=== PATIENT | female | born 1945 | race Caucasian/White ===

== ENCOUNTER 2017-06-22 20:40 | Emergency (ER) | payer MEDICARE, OTHER ==
[~2017-06-22] VITALS: Ht 170.2 cm; Wt 65.8 kg
[~2017-06-22 20:40] MED LIST: AMBIEN; LISIPOW; PRISTIQUE
[2017-06-22] MEDS ORDERED: HYDROmorphone HCL 2 MG/ML VL IV ONE (22:15)
[2017-06-22] MEDS ORDERED: SODIUM CHLORIDE 0.9% 1,000 ML IV ONE (22:15)
[2017-06-22] MEDS ORDERED: ONDANSETRON HCL 4 MG/2 ML VIAL IV ONE ×2 (22:15)
[2017-06-23] MEDS ORDERED: ONDANSETRON HCL 4 MG/2 ML VIAL IV ONE (03:00)
[2017-06-23 05:47] LABS: Basophils # (auto) 0 uL; Basophils % (auto) 0.3 % (0.0-2.0); Eosinophils # (auto) 0.1 uL; Eosinophils % (auto) 0.9 % (0.0-7.0); Hematocrit 43.3 % (36.0-46.0); Hemoglobin 14.6 g/dL (12.2-16.2); Lymphocytes # (auto) 1.1 uL; Lymphocytes % (auto) 16.2 % (10.0-50.0); Mean Corpuscular Hemoglobin 30.6 pg (28.0-32.0); Mean Corpuscular Hgb Conc. 33.8 g/dL (32.0-36.0); Mean Corpuscular Volume 90.4 fL (80.0-100.0); Mean Platelet Volume 7.5 fL (6.9-10.8); Monocytes # (auto) 0.5 uL; Neutrophils % (auto) 74.6 % (37.0-80.0); Nucleated Red Blood Cells % 0.1 %; Platelet Count (auto) 200 10^3/uL (140-450); Red Cell Distribution Width 12.8 % (11.8-14.3); White Blood Cell 6.6 10^3/uL (4.4-10.8)
[2017-06-23 05:51] VITALS: BP 163/99
[2017-06-23 06:02] LABS: Albumin 3.4 g/dL (3.4-5.0); BUN/Creatinine Ratio 19.4; Bilirubin, Total 0.7 mg/dL (0.2-1.0); Calcium 8.9 mg/dL (8.5-10.1); Potassium 3.4 mmol/L (3.5-5.1); Total Protein 7.2 g/dL (6.4-8.2)
== END 2017-06-23 07:15 | disposition home or self-care (01) ==
LOC: EDBD 20:40 → ER 20:42
DX: K29.00 Acute gastritis without bleeding (principal); I10 Essential (primary) hypertension; G89.29 Other chronic pain; M54.9 Dorsalgia, unspecified
CPT/HCPCS: 36415; 71010; 74176; 80053; 82150; 83690; 85025; 96361; 96374; 96375; 96376; 99285; J1170; J2405; J7030

== ENCOUNTER 2019-10-17 14:48 | Inpatient (IN) | payer OTHER ==
[~2019-10-17] VITALS: Ht 165.1 cm; Wt 71.2 kg
[2019-10-17] MEDS ORDERED: ASPirin 81 mg TAB PO ONE (15:30)
[2019-10-17 15:39] LABS: Basophils # (auto) 0 10 ^3/uL (0-0.2); Basophils % (auto) 0.5 % (0.0-2.0); Eosinophils # (auto) 0.3 10 ^3/uL (0-0.8); Hematocrit 40.8 % (36.0-46.0); Hemoglobin 14.1 g/dL (12.2-16.2); Lymphocytes # (auto) 0.7 10 ^3/uL (0.4-5.4); Lymphocytes % (auto) 14.1 % (10.0-50.0); Mean Corpuscular Hgb Conc. 34.5 g/dL (32.0-36.0); Mean Corpuscular Volume 86.8 fL (80.0-100.0); Monocytes # (auto) 0.4 10 ^3/uL (0-1.3); Monocytes % (auto) 7.4 % (0.0-12.0); Neutrophils # (auto) 3.8 10 ^3/uL (1.6-8.6); Platelet Count (auto) 264 10^3/uL (140-450); Red Cell Distribution Width 14.2 % (11.8-14.3); White Blood Cell 5.2 10^3/uL (4.4-10.8)
[2019-10-17 15:53] LABS: INR 1.07 (0.9-1.15); Partial Thromboplastin Time 31.3 sec (23.64-32.05)
[2019-10-17 16:00] LABS: Albumin 2.8 g/dL (3.4-5.0); Calcium 9.2 mg/dL (8.5-10.1); Potassium 3.9 mmol/L (3.5-5.1)
[2019-10-17 16:05] LABS: Bilirubin, Total 0.5 mg/dL (0.2-1.0); Total Protein 7.6 g/dL (6.4-8.2)
[2019-10-17] MEDS ORDERED: IOHEXOL 350 MG/ML 100ML IJ ONE (17:50)
[2019-10-17] MEDS ORDERED: cefTRIAXone 1GM/50ML D5W 50 ML IV ONE (18:45)
[2019-10-17] MEDS ORDERED: ONDANSETRON HCL 4 MG/2 ML VIAL IV ONE (20:30)
[2019-10-17] MEDS ORDERED: MORPHINE SULF INJ 2 MG/ML SYRINGE 1ML IV ONE (20:30)
[2019-10-17] MEDS ORDERED: NITROGLYCERIN 0.4 MG SL TAB SL PRN (21:00)
[2019-10-17] MEDS ORDERED: ALBUTEROL SULF 2.5 MG/0.5ML(0.5%) NEB SOLN NEB PRN (21:00)
[2019-10-17] MEDS ORDERED: ACETAMINOPHEN 325 MG TAB PO PRN (21:00)
[2019-10-17] MEDS ORDERED: DOCUSATE SOD 100 MG CAP PO PRN (21:00)
[2019-10-17] MEDS ORDERED: MORPHINE SULF INJ 2 MG/ML SYRINGE 1ML IV PRN (21:00)
[2019-10-17] MEDS ORDERED: ONDANSETRON HCL 4 MG/2 ML VIAL IV PRN (21:00)
[2019-10-17] MEDS ORDERED: IPRATROPIUM BROM 0.5 MG/2.5ML INH SOL NEB PRN (21:00)
[2019-10-17] MEDS ORDERED: MORPHINE SULFATE 4 MG/ML SYR/VIAL IV PRN (21:00)
[2019-10-17 22:14] VITALS: BP 142/92
--- NOTE | 2019-10-17 22:42 | NUR ---
Respiratory note: ASSESSMENT FOR PRN MED NEB TX. HR 84, SPO2 94% ON 2L NC, RR 18, BS CLEAR/DIMINISHED. PT PRESENTING NO RESPIRATORY DISTRESS, MED NEB TX NOT INDICATED AT THIS TIME. PT MADE AWARE OF PRN MED NEB TXS AND TO HAVE RT PAGED IF NEEDED. WILL CONTINUE TO MONITOR.
[2019-10-18] MEDS ORDERED: TEMAZEPAM 15 MG CAP PO ONE (00:15)
[2019-10-18] MEDS: traZODone HCL 50 MG TAB PO SCH ×2 (03:15→21:43)
[2019-10-18 05:39] LABS: Basophils # (auto) 0 10 ^3/uL (0-0.2); Basophils % (auto) 0.5 % (0.0-2.0); Eosinophils # (auto) 0.3 10 ^3/uL (0-0.8); Eosinophils % (auto) 6.3 % (0.0-7.0); Hematocrit 37.4 % (36.0-46.0); Hemoglobin 12.4 g/dL (12.2-16.2); Lymphocytes # (auto) 1.4 10 ^3/uL (0.4-5.4); Lymphocytes % (auto) 25.4 % (10.0-50.0); Mean Corpuscular Hemoglobin 28.8 pg (28.0-32.0); Mean Corpuscular Hgb Conc. 33.3 g/dL (32.0-36.0); Mean Corpuscular Volume 86.5 fL (80.0-100.0); Monocytes # (auto) 0.5 10 ^3/uL (0-1.3); Monocytes % (auto) 9.3 % (0.0-12.0); Neutrophils # (auto) 3.1 10 ^3/uL (1.6-8.6); Neutrophils % (auto) 58.5 % (37.0-80.0); Nucleated Red Blood Cells % 0.1 %; Platelet Count (auto) 233 10^3/uL (140-450); Red Blood Cells 4.32 10^6/uL (4.0-5.20); Red Cell Distribution Width 14.4 % (11.8-14.3); White Blood Cell 5.4 10^3/uL (4.4-10.8)
[2019-10-18 05:58] LABS: Potassium 3.5 mmol/L (3.5-5.1)
[2019-10-18 06:14] LABS: BUN/Creatinine Ratio 16.7; Calcium 8.9 mg/dL (8.5-10.1)
[2019-10-18] MEDS ORDERED: cefTRIAXone 1GM/50ML D5W 50 ML IV SCH (10:00)
[2019-10-18] MEDS ORDERED: FUROSEMIDE 20 MG TAB PO SCH (10:00)
[2019-10-18] MEDS: ASPirin 81 mg TAB PO SCH (10:06)
[2019-10-18] MEDS: ATORVASTATIN 20 MG TAB PO SCH (10:06)
[2019-10-18] MEDS: LISINOPRIL 20 MG TAB PO SCH (10:07)
[2019-10-18] MEDS: CLOPIDOGREL BISULFATE 75 MG TAB PO SCH (10:07)
[2019-10-18] MEDS ORDERED: ENOXAPARIN SOD 100 MG/1 ML SYRINGE SC ONE (14:00)
[2019-10-18] MEDS ORDERED: MORPHINE SULF INJ 2 MG/ML SYRINGE 1ML IV PRN (14:15)
[2019-10-18] MEDS ORDERED: ENOXAPARIN SOD 80 MG/0.8ML SYRINGE SC ONE (14:15)
[2019-10-18] MEDS: levoFLOXacin 500MG 100 ML IV SCH (17:47)
--- NOTE | 2019-10-18 19:36 | NUR ---
PT ASSESSED FOR PRN MED NEB TX. SPO2 96% ON 3L NC, HR 85, RR 18. PT RESTING COMFORTABLY AT THIS TIME. NO TX INDICATED. WILL CONTINUE TO MONITOR PT.
[2019-10-18] MEDS: METOPROLOL TARTRATE 25 MG TAB PO SCH (21:43)
[2019-10-18] MEDS: ENOXAPARIN SOD 80 MG/0.8ML SYRINGE SC SCH (21:44)
[2019-10-18] MEDS ORDERED: ATORVASTATIN 20 MG TAB PO SCH (22:00)
[2019-10-19 04:05] VITALS: BP 137/97
--- NOTE | 2019-10-19 04:05 | NUR ---
Admit to [facility] admitted to [facility] via gurney on cardiac nurse, and portable 02. Patient transferred to bed, connected to unit monitoring and oxygen, and weighed by bedscale. Patient oriented to Rachel Akhtar, primary RN, unit, room, bed, and unit policies regarding patient care and visiting hours. All questions and concerns addressed, patient verbalized understanding. Pt states daughter will bring medicines from home. Pt also states can not sleep without Lunesta medication. Pt educated that the med needs to come from home and can be distributed by our pharmacy until she is ready to go home. Pt has belongings at the bedside and states daughter will take medication bottles home. No S/S of distress or pain at this time. States chest pain has been gone since she was in the emergency dept.
[2019-10-19 05:02] VITALS: BP 137/97
[2019-10-19 06:56] LABS: Basophils # (auto) 0 10 ^3/uL (0-0.2); Basophils % (auto) 0.5 % (0.0-2.0); Eosinophils # (auto) 0.4 10 ^3/uL (0-0.8); Eosinophils % (auto) 8.4 % (0.0-7.0); Hematocrit 38.2 % (36.0-46.0); Hemoglobin 12.7 g/dL (12.2-16.2); Lymphocytes # (auto) 1.7 10 ^3/uL (0.4-5.4); Lymphocytes % (auto) 34.6 % (10.0-50.0); Mean Corpuscular Hemoglobin 28.8 pg (28.0-32.0); Mean Corpuscular Hgb Conc. 33.4 g/dL (32.0-36.0); Mean Corpuscular Volume 86.3 fL (80.0-100.0); Monocytes # (auto) 0.5 10 ^3/uL (0-1.3); Monocytes % (auto) 10.1 % (0.0-12.0); Neutrophils # (auto) 2.3 10 ^3/uL (1.6-8.6); Neutrophils % (auto) 46.4 % (37.0-80.0); Nucleated Red Blood Cells % 0.1 %; Platelet Count (auto) 253 10^3/uL (140-450); Red Blood Cells 4.43 10^6/uL (4.0-5.20); Red Cell Distribution Width 14.3 % (11.8-14.3)
[2019-10-19 07:07] LABS: Calcium 9.4 mg/dL (8.5-10.1); Potassium 3.4 mmol/L (3.5-5.1)
--- NOTE | 2019-10-19 07:30 | NUR ---
RECEIVED PATIENT SITTING UP IN THE BED, A/O TIME 4, O2 AT 2L BY THE N/C, STATES SHE IS TIRED DIDN'T GET MUCH SLEEP LAST NIGHT, SALINE LOCK 20G TO THE RAC FLUSHED AND PATENT, STATES SHE CAN GET UP AND GO TO THE BR, DENIES PAIN
[2019-10-19 07:40] VITALS: BP 127/78
--- NOTE | 2019-10-19 07:50 | NUR ---
PATIENT GOT UP TO THE BR NO HELP NEEDED
--- NOTE | 2019-10-19 07:58 | NUR ---
Pt remains stable. No Changes since arrival to unit. Report given to AM shift, care endorsed.
--- NOTE | 2019-10-19 08:10 | NUR ---
Respiratory note: PRN ASSESSMENT. PT AWAKE, ALERT AND RESPONSIVE. PT ON 2 LPM SP02 96%, RR 18 AND BS ARE CLEAR. NO COMPLAINT OF SOB, NO TREATMENT INDICATED.
--- NOTE | 2019-10-19 08:20 | NUR ---
RECEIVED CALL FROM DR RENDON AND STATED TO KEEP THE PATIENT NPO AND TO GET A TROP DRAWN Addendum: 10/19/19 at 0953 by Jasmyn Washington RN PER DR RENDON STATED TO HOLD THE LOVENOX BUT GIVE ALL OF THE OTHER MEDS
--- NOTE | 2019-10-19 08:30 | NUR ---
EXPRESS TO THE PATIENT THAT SHE IS STILL NPO AND THAT I SPOKE WITH THE VIDEOTAPE SALES REPRESENTATIVE WHO STATED TO KEEP HER NPO
--- NOTE | 2019-10-19 09:30 | NUR ---
SITTING UP IN BED EYES CLOSED APPEARS TO BE SLEEPING
[2019-10-19] MEDS: ENOXAPARIN SOD 80 MG/0.8ML SYRINGE SC SCH (09:52)
[2019-10-19] MEDS: levoFLOXacin 500MG 100 ML IV SCH (09:59)
[2019-10-19] MEDS ORDERED: ASPirin 325 MG TAB PO SCH (10:00)
[2019-10-19] MEDS: ASPirin 81 mg TAB PO SCH (10:04)
[2019-10-19] MEDS: METOPROLOL TARTRATE 25 MG TAB PO SCH ×2 (10:05→22:32)
[2019-10-19] MEDS: CLOPIDOGREL BISULFATE 75 MG TAB PO SCH (10:05)
[2019-10-19] MEDS: ATORVASTATIN 20 MG TAB PO SCH (10:05)
--- NOTE | 2019-10-19 10:10 | NUR ---
DISCUSSED MEDICATIONS WITH THE PATIENT REGARDING THE DOSAGE, USAGE AND THE SIDE EFFECTS, VERBALIZED UNDERSTANDING AND MEDS GIVEN ORDERED ALSO GAVE NORCO FOR PAIN TO THE LEGS 03/14
[2019-10-19] MEDS: HYDROcodone-ACET 5/325MG TAB PO PRN ×3 (10:11→22:32)
--- NOTE | 2019-10-19 11:04 | NUR ---
RECEIVED A CALL FROM DR RAJPUT AND STATED "TO SPEAK WITH THE RADIOLOGIST ABOUT DOING A LUNG BIOPSY , SPOKE WITH DR PAVON RADIOLOGIST AND STATED "TO PLACE THE ORDER FOR THE LUNG BIOPSY" WHICH WAS DONE
--- NOTE | 2019-10-19 11:05 | NUR ---
DR RENDON IN TALKING TO THE PATIENT ABOUT HAVING POSSIBLE HEART CATH BUT WANTS A ECHO FIRST
--- NOTE | 2019-10-19 11:13 | NUR ---
DR KEATING IN TALKING TO THE PATIENT AND STATED SHE CAN HAVE THE LUNG BIOPSY AN OUT PATIENT IF NEEDED SINCE SHE IS HAVING SOME HEART ISSUES
--- NOTE | 2019-10-19 11:16 | NUR ---
CALLED PORTIA THE OUTSIDE SALESPERSON AND ASK IF HE COULD COME AND DO THE ECHO
--- NOTE | 2019-10-19 11:22 | NUR ---
ECHO BEING DONE
--- NOTE | 2019-10-19 11:23 | NUR ---
FAMILY IN TO VISIT WITH THE PILO
--- NOTE | 2019-10-19 11:37 | NUR ---
D/C Planning Per consult for home health safety evaluation. Faxed order to [facility]. Per Rachel with [facility] patient has been accepted and service to start within 24-48hrs upon d/c day. Faxed order to [facility] requesting authorization for [facility].
[2019-10-19 11:40] VITALS: BP 135/87
--- NOTE | 2019-10-19 11:41 | NUR ---
Received a followed up called from Yulissa with [facility] advising me authorization has been faxed to [facility].
--- NOTE | 2019-10-19 12:00 | NUR ---
TOLERATED THE ECHO BEING DONE, NO COMPLAINT OF PAIN AT THIS TIME
[2019-10-19] MEDS: LISINOPRIL 20 MG TAB PO SCH (12:07)
--- NOTE | 2019-10-19 12:26 | NUR ---
SITTING UP IN THE BED TALKING WITH HER FAMILY
--- NOTE | 2019-10-19 12:28 | NUR ---
NO CALL FROM DR RENDON IF HE IS GOING TO DO A HEART CATH OR NOT
--- NOTE | 2019-10-19 12:40 | NUR ---
RECEIVED CALL FROM DR HOWARD AND STATED HE SCHEDULED THE PATIENT FOR A HEART CATH TOMORROW AT 1200
--- NOTE | 2019-10-19 12:50 | NUR ---
EXPRESS TO THE PATIENT THAT THE HEART CATH HAS BEEN SCHEDULED FOR TOMORROW AT ABOUT 1200
--- NOTE | 2019-10-19 13:50 | NUR ---
DR RAJPUT TO SEE THE PATIENT AND TALK TO HER ABOUT THE HEART CATH TOMORROW AND ABOUT THE POC, PATIENT SIGNED THE CONSENT FOR THE HEART CATH
[2019-10-19] MEDS ORDERED: LISI30TA4 PO (14:17)
[2019-10-19] MEDS ORDERED: PERCOT PO (14:17)
[2019-10-19] MEDS ORDERED: SIMV-8 PO (14:17)
[2019-10-19] MEDS ORDERED: TIOTCAP IN (14:17)
[2019-10-19] MEDS ORDERED: TRAZ100T3 PO (14:17)
[2019-10-19] MEDS ORDERED: CAR3125T PO (14:17)
[2019-10-19] MEDS ORDERED: FLUT250M2 INH (14:17)
--- NOTE | 2019-10-19 15:14 | NUR ---
MEDICATED FOR PAIN TO THE BACK AND LEGS WITH NORCO 6/10
[2019-10-19 15:40] VITALS: BP 143/91
--- NOTE | 2019-10-19 16:02 | NUR ---
assessment Patient is a 74 year old female who is alert and oriented. Patients cognitive abilities are intact. Prior to admission patient lived home alone and functioned independently. Patient informed me she is able to care for her own ADLs. Per patient she will return home to her prior living arrangements post discharge and family will transport her home. Patient informed me her PCP is Dr Mallory. Patient may benefit from home health safety and vitals on discharge. I informed patient she has a right to speak to a rn social work regarding all care. I informed patient she has a right to participate in any and all discharge planning. Patient does not have a POA and advanced directive. I have offered patient information on POA and advanced directives. I informed the patient the advantages and benefits of having an Advanced Directive. Patient verbalized understanding and agreed to discharge plan. Addendum: 10/19/19 at 1606 by Korina MICHAEL Amended: Links added.
--- NOTE | 2019-10-19 16:18 | NUR ---
DAUGHTER IN TO SEE THE PATIENT AND STATES SHE IS TAKING HOME HER HOME MEDS HER YELLOW BRACELET AND HER GREEN PURSE
--- NOTE | 2019-10-19 17:20 | NUR ---
DR NDIAYE, IN TO SEE THE PATIENT AND SPOKE WITH HER ABOUT HER LUNG NODULES
[2019-10-19] MEDS ORDERED: ESZO3TAB53 PO (17:56)
--- NOTE | 2019-10-19 18:23 | NUR ---
DINNER AT THE BEDSIDE, PATIENT A/O TIMES 4, TALKING ON THE PHONE, O2 AT 2L BY N/C, WALKS TO THE BR NO HELP NEEDED, SALINE LOCK TO THE RFA 20G FLUSHED AND PATENT, NO COMPLAINTS OF PAIN OR SOB, WILL CONTINUE TO MONITOR AND GIVE REPORT TO THE NEXT SHIFT
[2019-10-19 20:00] VITALS: BP 138/97
--- NOTE | 2019-10-19 20:00 | NUR ---
SHIFT OPENING NOTE RECEIVED PATIENT AWAKE, ALERT AND ORIENTED X4. NO SOB, DISTRESS OR PAIN NOTED. ON 2L N/C. PHYSICAL ASSESSMENT COMPLETED, SEE INTERVENTIONS. INSTRUCTED ON POC AND TO CALL FOR ASSIST NEEDED. BED IS IN THE LOWEST POSITION WITH SIDE RAILS UP X2, CALL LIGHT IS WITHIN REACH.
[2019-10-19] MEDS ORDERED: POTASSIUM EFFERVESENT TAB 25 MEQ PO ONE (21:00)
--- NOTE | 2019-10-19 21:30 | NUR ---
UP TO BATHROOM INDEPENDENTLY SAFELY BACK INTO BED. TOLERATED IT WELL.
--- NOTE | 2019-10-19 21:30 | NUR ---
Respiratory note: PT ASSESSED FOR PRN MED NEB TX. HR 96, RR 16, SPO2 94% ON 2L NC. NO SIGNS OF ANY RESPIRATORY DISTRESS NOTED. ADVISED PT TO CALL IF TX IS NEEDED. RT NAME AND PAGER NUMBER WRITTEN ON PT'S BOARD.
[2019-10-19] MEDS: traZODone HCL 50 MG TAB PO SCH (22:31)
[2019-10-20] VITALS: BP 154/98
[2019-10-20 04:00] VITALS: BP 148/88
--- NOTE | 2019-10-20 04:35 | NUR ---
IV insertion IV access obtained, via clean sterile technique by inserting [20] gauge catheter at [RIGHT FOREARM]. IV secured properly. No trauma to site. Patient tolerated well. NOTE: 2ND IV LINE
--- NOTE | 2019-10-20 05:10 | NUR ---
MORNING HYGIENE CARE CHG WIPE BATH PROVIDED TO PATIENT. FULL LINEN CHANGED. GOWN CHANGED. PATIENT TOLERATED IT WELL.
[2019-10-20 05:47] LABS: Basophils # (auto) 0 10 ^3/uL (0-0.2); Basophils % (auto) 0.5 % (0.0-2.0); Eosinophils # (auto) 0.4 10 ^3/uL (0-0.8); Eosinophils % (auto) 6.7 % (0.0-7.0); Hematocrit 42.8 % (36.0-46.0); Hemoglobin 14.3 g/dL (12.2-16.2); Lymphocytes # (auto) 1.7 10 ^3/uL (0.4-5.4); Lymphocytes % (auto) 28.3 % (10.0-50.0); Mean Corpuscular Hemoglobin 29.1 pg (28.0-32.0); Mean Corpuscular Hgb Conc. 33.4 g/dL (32.0-36.0); Mean Corpuscular Volume 87.3 fL (80.0-100.0); Monocytes # (auto) 0.7 10 ^3/uL (0-1.3); Monocytes % (auto) 10.8 % (0.0-12.0); Neutrophils # (auto) 3.3 10 ^3/uL (1.6-8.6); Neutrophils % (auto) 53.7 % (37.0-80.0); Nucleated Red Blood Cells % 0.1 %; Platelet Count (auto) 301 10^3/uL (140-450); Red Cell Distribution Width 14.4 % (11.8-14.3); White Blood Cell 6.1 10^3/uL (4.4-10.8)
[2019-10-20 06:02] LABS: Albumin 2.9 g/dL (3.4-5.0); Calcium 9.9 mg/dL (8.5-10.1); Magnesium 2.2 mg/dL (1.6-2.6); Potassium 4.3 mmol/L (3.5-5.1)
[2019-10-20 06:04] LABS: BUN/Creatinine Ratio 10.5; INR 1.11 (0.9-1.15); Partial Thromboplastin Time 30.3 sec (23.64-32.05)
[2019-10-20 06:07] LABS: Bilirubin, Total 0.5 mg/dL (0.2-1.0); Total Protein 7.9 g/dL (6.4-8.2)
--- NOTE | 2019-10-20 07:27 | NUR ---
REPORT GIVEN AND CARE ENDORSED TO JAZMINE PIERRE IN TELE
--- NOTE | 2019-10-20 07:40 | NUR ---
PATIENT TRANSPORTED TO ROOM 278B VIA BED. ALL BELONGINGS TAKEN WITH PATIENT.
--- NOTE | 2019-10-20 08:00 | NUR ---
TRANSFER RECEIVED PATIENT FROM [facility] AFTER REPORT CALLED. PATIENT ORIENTED TO PRIMARY RN JAZMINE AND UNIT POLICIES/VISITING HOURS. TELE #[id number] WITH A READING OF NORMAL SINUS RHYTHM UPON ARRIVAL TO UNIT. PATIENT IS AWAKE AND ALERT WITH NO S/S OF DISTRESS NOTED OR COMPLAINTS ON PAIN. PATIENT UPDATED ON POC FOR THE DAY AND ALL QUESTIONS ANSWERED. BED IS IN LOWEST, LOCKED POSITION WITH SIDE RAILS UP X2 AND CALL LIGHT WITHIN REACH. WILL CONTINUE TO MONITOR Q1H AND PRN.
--- NOTE | 2019-10-20 08:30 | NUR ---
LACEWORKER PATIENT TAKEN DOWN TO LACEWORKER WITHOUT INCIDENT.
[2019-10-20] MEDS ORDERED: LIDOCAINE 2%HCL (LOCAL ANESTH.) INJ 20ML MDV ONE (09:12)
[2019-10-20] MEDS ORDERED: IODIXANOL 320MG/ML 100ML BTL IV ONE ×2 (09:12→09:26)
[2019-10-20] MEDS ORDERED: ANGIOMAX 250 MG VIAL IV ONE (09:14)
[2019-10-20] MEDS ORDERED: VERAPAMIL 2.5MG/ML INJ 2ML VIAL IV ONE (09:14)
[2019-10-20] MEDS ORDERED: fentaNYL CITRATE 100 MCG/2 ML VL ONE (09:14)
[2019-10-20] MEDS ORDERED: HEPARIN SODIUM (PORCINE) 5000 UNITS/ML 1ML VIAL ONE (09:14)
[2019-10-20] MEDS ORDERED: SODIUM CHL 0.9% 0 ML ONE (09:15)
[2019-10-20] MEDS ORDERED: MIDAZOLAM HCL 1MG/1ML-2 ML VIAL ONE (09:15)
[2019-10-20] MEDS: CLOPIDOGREL BISULFATE 75 MG TAB PO SCH (10:00)
--- NOTE | 2019-10-20 10:04 | NUR ---
RT NOTE: PT IN MANAGER ELIGIBILITY FOR PROCEDURE. WILL ATTEMPT TO ASSESS FOR PRN BREATHING TX AFTER PT IS BACK ON UNIT.
--- NOTE | 2019-10-20 11:05 | NUR ---
BACK ON UNIT PATIENT BROUGHT BACK TO ROOM FROM CLAIM REP AFTER REPORT RECEIVED. LEFT HEART CATH ACCESS WAS THE LEFT WRIST WHICH HAS A VASCBAND IN PLACE. PER CLAIM REP RN SHE HAD TAKEN OUT 2ML OF AIR 5 MIN PREVIOUSLY AND SITE STARTED TO OOZE. SHE REINFLATED WITH 2ML OF AIR AND INSTRUCTED ME TO DEFLATE 2ML IN 30 MIN. VITAL SIGNS UPON RETURN TO UNIT ARE BP OF 122/66 AND HEART RATE OF 94. WILL CONTINUE TO MONITOR.
[2019-10-20] MEDS: ATORVASTATIN 20 MG TAB PO SCH (11:20)
[2019-10-20] MEDS: LISINOPRIL 20 MG TAB PO SCH (11:21)
[2019-10-20] MEDS: ASPirin 81 mg TAB PO SCH (11:21)
[2019-10-20] MEDS: METOPROLOL TARTRATE 25 MG TAB PO SCH (11:22)
[2019-10-20] MEDS: levoFLOXacin 500MG 100 ML IV SCH (11:25)
--- NOTE | 2019-10-20 12:15 | NUR ---
PAGED AFTER SPEAKING TO DR RAJPUT I PAGED DR RENDON FOR ORDERS. AWAITING CALL BACK
--- NOTE | 2019-10-20 12:27 | NUR ---
VASCBAND VASCBAND COMPLETELY DEFLATED AND REMOVED. CLEAR, OCCLUSIVE DRESSING APPLIED TO SITE. SITE REMAINS SOFT AND NONTENDER WITH MINIMAL BRUISING. WILL CONTINUE TO MONITOR.
[2019-10-20 13:00] VITALS: BP 132/80
[2019-10-20] MEDS ORDERED: NITR0.4S29 SL (14:42)
[2019-10-20] MEDS ORDERED: ATOR20TA50 PO (14:42)
[2019-10-20] MEDS ORDERED: ASPI-394 PO (14:42)
[2019-10-20] MEDS ORDERED: LEVO500T21 PO (14:42)
[2019-10-20 15:37] VITALS: BP 122/66
--- NOTE | 2019-10-20 15:50 | NUR ---
PAGED DR RENDON PAGED FOR DISCHARGE CLEARANCE. AWAITING CALL BACK.
--- NOTE | 2019-10-20 16:04 | NUR ---
I faxed home health order and out patient lung biopsy order to [facility].
--- NOTE | 2019-10-20 16:15 | NUR ---
I spoke with Yulissa at [facility] ([phone])-she said [facility] will follow the patient-and Yulissa is arranging the outpatient appointment for patient Saturday10/26/19 as well as appointment with Dr. Ayala-they will contact patient with updated information.
--- NOTE | 2019-10-20 17:15 | NUR ---
PAGED DR RAJPUT PAGED DUE TO INABILITY TO REACH DR RENDON. AWAITING CALL BACK.
--- NOTE | 2019-10-20 17:30 | NUR ---
3RD PAGE TO PAGED DR RENDON FOR THE THIRD TIME TRYING TO GET DISCHARGE CLEARANCE. AWAITING CALL BACK.
--- NOTE | 2019-10-20 17:45 | NUR ---
MD CALL BACK RECEIVED CALL FROM DR RENDON REGARDING DISCHARGE CLEARANCE. REVIEWED PATIENT'S MEDICATIONS AND CLEARANCE OBTAINED.
--- NOTE | 2019-10-20 17:53 | NUR ---
Discharge instructions given as ordered. Encourage to follow up with PMD as instructed. All questions and concerns addressed. Patient verbalized understanding. IV removed with catheter intact, pressure dressing applied. Telemetry unit returned to ICU. Patient taken to vehicle via wheelchair with all personal belongings, accompanied by staff and family member. No distress noted at time of departure.
[2019-12-31] MEDS ORDERED: PRED20TA2 PO (13:07)
[2019-12-31] MEDS ORDERED: DOX100T PO (13:07)
[2019-12-31] MEDS ORDERED: ALBUAER3 IN (13:07)
[2019-12-31] MEDS ORDERED: FURO1TAB31 PO (13:07)
[2020-01-06] MEDS ORDERED: DOX100T PO (19:02)
[2020-01-06] MEDS ORDERED: FURO1TAB31 PO (19:02)
[2020-01-06] MEDS ORDERED: PRED20TA2 PO (19:02)
[2020-01-06] MEDS ORDERED: ALBUAER3 IN (19:02)
== END 2019-10-20 17:50 | disposition home health service (06) | DRG 280 ==
LOC: EDBD 14:48 → EDUNIT# 14:48 → ER 14:48 → TELE 14:49 → DOU IN ICU 10-19 04:10 → TELE-WESTW 10-20 08:19
PROVIDERS: ADMIT Hospitalist; ATTEND Internal Medicine
PROC: B211YZZ Fluoroscopy of Multiple Coronary Arteries using Other Contrast (ICD-10-PCS; principal; 2019-10-20)
DX: I21.4 Non-ST elevation (NSTEMI) myocardial infarction (principal); J18.9 Pneumonia, unspecified organism; I50.41 Acute combined systolic (congestive) and diastolic (congestive) heart failure; R91.8 Other nonspecific abnormal finding of lung field; I25.10 Atherosclerotic heart disease of native coronary artery without angina pectoris; I11.0 Hypertensive heart disease with heart failure; E78.5 Hyperlipidemia, unspecified; F17.200 Nicotine dependence, unspecified, uncomplicated; F32.9 Major depressive disorder, single episode, unspecified; J43.9 Emphysema, unspecified; Z79.02 Long term (current) use of antithrombotics/antiplatelets; Z79.82 Long term (current) use of aspirin; Z80.0 Family history of malignant neoplasm of digestive organs; Z80.3 Family history of malignant neoplasm of breast; Z79.899 Other long term (current) drug therapy; Z82.5 Family history of asthma and other chronic lower respiratory diseases; Z83.3 Family history of diabetes mellitus; Z87.01 Personal history of pneumonia (recurrent); Z95.1 Presence of aortocoronary bypass graft; Z71.6 Tobacco abuse counseling
CPT/HCPCS: 36415; 71045; 71275; 80048; 80053; 80061; 82962; 83605; 83735; 83880; 84443; 84484; 85025; 85379; 85610; 85730; 86850; 86900; 86901; 87040; 93005; 93306; 93454; 93970; 96365; 96366; 99152; G0378; J0696; J1956; J2250; Q9967

== ENCOUNTER → 2019-12-15 | Outpatient (CLI) | payer OTHER ==
[~2019-12-15] VITALS: Ht 1 cm; Wt 0.5 kg
[~2019-12-15] MED LIST changes: -AMBIEN; +ASP81EC PO; +ATOR20TA50 PO; +CAR3125T PO; +ESZO3TAB53 PO; +FLUT250M2 INH; +LEVO500T21 PO; +LIDOCAINE 2%HCL (LOCAL ANESTH.) INJ 20ML MDV ONE; +LISI30TA4 PO; -LISIPOW; +MIDAZOLAM HCL 5 MG/ML-1ML VIAL IV ONE; +MIDAZOLAM HCL 5 MG/ML-1ML VIAL ONE; +NITR0.4S29 SL; +PERCOT PO; -PRISTIQUE; +TIOTCAP IN; +TRAZ100T3 PO; +fentaNYL CITRATE 100 MCG/2 ML VL IV ONE; +fentaNYL CITRATE 100 MCG/2 ML VL ONE
[2019-12-15 11:13] LABS: INR 1.24 (0.9-1.15)
[2019-12-15 13:23] LABS: Albumin 2.4 g/dL (3.4-5.0); Calcium 8.8 mg/dL (8.5-10.1); Potassium 3.9 mmol/L (3.5-5.1)
[2019-12-15 13:26] LABS: Bilirubin, Total 0.7 mg/dL (0.2-1.0); Total Protein 7.7 g/dL (6.4-8.2)
== END | disposition home or self-care (01) ==
LOC: CT 09:17
DX: R91.8 Other nonspecific abnormal finding of lung field (principal); J43.9 Emphysema, unspecified; Z87.891 Personal history of nicotine dependence; Z98.890 Other specified postprocedural states
CPT/HCPCS: 32405; 36415; 71045; 71250; 77012; 80053; 85610; 85730; J2250; J3010; 10022; 99152

== ENCOUNTER 2019-12-28 17:18 | Inpatient (IN) | payer OTHER ==
[~2019-12-28] VITALS: Ht 165.1 cm; Wt 72.3 kg
[~2019-12-28 17:18] MED LIST changes: -LIDOCAINE 2%HCL (LOCAL ANESTH.) INJ 20ML MDV ONE; -MIDAZOLAM HCL 5 MG/ML-1ML VIAL IV ONE; -MIDAZOLAM HCL 5 MG/ML-1ML VIAL ONE; -fentaNYL CITRATE 100 MCG/2 ML VL IV ONE; -fentaNYL CITRATE 100 MCG/2 ML VL ONE
[2019-12-28] MEDS ORDERED: ACETAMINOPHEN 325 MG TAB PO ONE ×3 (17:45)
[2019-12-28] MEDS ORDERED: SODIUM CHLORIDE 0.9% 1,000 ML IV ONE ×2 (18:30→20:15)
[2019-12-28 18:33] LABS: Basophils # (auto) 0 10 ^3/uL (0-0.2); Basophils % (auto) 0.2 % (0.0-2.0); Eosinophils # (auto) 0.2 10 ^3/uL (0-0.8); Lymphocytes # (auto) 0.7 10 ^3/uL (0.4-5.4); Monocytes # (auto) 0.9 10 ^3/uL (0-1.3); Neutrophils # (auto) 12.2 10 ^3/uL (1.6-8.6)
[2019-12-28 18:34] LABS: Eosinophils % (auto) 1.7 % (0.0-7.0); Hematocrit 34.3 % (36.0-46.0); Hemoglobin 11.2 g/dL (12.2-16.2); Lymphocytes % (auto) 5.2 % (10.0-50.0); Mean Corpuscular Hemoglobin 26.7 pg (28.0-32.0); Mean Corpuscular Hgb Conc. 32.6 g/dL (32.0-36.0); Mean Corpuscular Volume 81.8 fL (80.0-100.0); Monocytes % (auto) 6.3 % (0.0-12.0); Neutrophils % (auto) 86.6 % (37.0-80.0); Platelet Count (auto) 501 10^3/uL (140-450); Red Blood Cells 4.19 10^6/uL (4.0-5.20); Red Cell Distribution Width 15.3 % (11.8-14.3); White Blood Cell 14.1 10^3/uL (4.4-10.8)
[2019-12-28 18:40] LABS: Albumin 1.7 g/dL (3.4-5.0); Anion Gap 8 (5-15); Blood Urea Nitrogen 9 mg/dL (7-18); Calcium 8.3 mg/dL (8.5-10.1); Carbon Dioxide 24 mmol/L (21-32); Chloride 104 mmol/L (98-107); Glucose 102 mg/dL (74-106); Potassium 3.9 mmol/L (3.5-5.1); Sodium 136 mmol/L (136-145)
[2019-12-28 18:46] LABS: Alanine Aminotransferase 41 U/L (13-56); Alkaline Phosphatase 138 U/L (45-117); Aspartate Aminotransferase 39 U/L (15-37); Bilirubin, Total 0.6 mg/dL (0.2-1.0); GFR African American 126 mL/min; GFR Non-African American 104 mL/min; Total Protein 7.1 g/dL (6.4-8.2)
[2019-12-28 19:10] LABS: CRP High Sensitivity 17.6 mg/dL (< 0.3)
[2019-12-28] MEDS ORDERED: PIPERACILLIN-TAZOB 3.375GM 100 ML IV ONE (19:45)
[2019-12-28] MEDS ORDERED: SODIUM CHLORIDE 0.9% 1,000 ML IV SCH (20:47)
[2019-12-28] MEDS ORDERED: ACETAMINOPHEN 325 MG TAB PO PRN (21:00)
[2019-12-28] MEDS ORDERED: NITROGLYCERIN 0.4 MG SL TAB SL SCH (21:00)
[2019-12-28] MEDS ORDERED: DOCUSATE SOD 100 MG CAP PO PRN (21:00)
[2019-12-28 21:38] VITALS: BP 95/71
[2019-12-28] MEDS: ALBUTEROL SULF HFA 90MCG INH 200DOSE IN SCH (22:00)
[2019-12-28] MEDS ORDERED: DOXYCYCLINE 100MG/250ML 250 ML IV SCH (22:00)
[2019-12-28] MEDS: CARVEDILOL 3.125 MG TAB PO SCH (22:00)
[2019-12-28] MEDS: OXYCODONE W/ ACETAMINOPHEN 5/325MG TABLET PO SCH (22:01)
[2019-12-28 22:30] VITALS: BP 99/68
[2019-12-29] MEDS: guaiFENesin-DM 100/10mg/5ml SYR PO PRN ×2 (03:01→11:57)
[2019-12-29 05:00] VITALS: BP 136/76
[2019-12-29] MEDS: OXYCODONE W/ ACETAMINOPHEN 5/325MG TABLET PO SCH ×4 (06:13→21:30)
[2019-12-29] MEDS: ALBUTEROL SULF HFA 90MCG INH 200DOSE IN SCH ×3 (06:28→15:24)
[2019-12-29] MEDS: ACETAMINOPHEN 500 MG TAB PO PRN ×2 (06:53→23:07)
[2019-12-29 06:59] LABS: Basophils # (auto) 0 10 ^3/uL (0-0.2); Basophils % (auto) 0.3 % (0.0-2.0); Eosinophils # (auto) 0.2 10 ^3/uL (0-0.8); Eosinophils % (auto) 1.2 % (0.0-7.0); Mean Corpuscular Hgb Conc. 32.3 g/dL (32.0-36.0); Monocytes # (auto) 0.8 10 ^3/uL (0-1.3)
[2019-12-29 07:01] LABS: Hematocrit 29.6 % (36.0-46.0); Hemoglobin 9.6 g/dL (12.2-16.2); Lymphocytes # (auto) 0.7 10 ^3/uL (0.4-5.4); Lymphocytes % (auto) 4.6 % (10.0-50.0); Mean Corpuscular Hemoglobin 26.5 pg (28.0-32.0); Mean Corpuscular Volume 81.9 fL (80.0-100.0); Monocytes % (auto) 5.3 % (0.0-12.0); Neutrophils # (auto) 12.7 10 ^3/uL (1.6-8.6); Neutrophils % (auto) 88.6 % (37.0-80.0); Platelet Count (auto) 439 10^3/uL (140-450); Red Blood Cells 3.61 10^6/uL (4.0-5.20); Red Cell Distribution Width 15.5 % (11.8-14.3); White Blood Cell 14.3 10^3/uL (4.4-10.8)
[2019-12-29 07:12] LABS: Albumin 1.6 g/dL (3.4-5.0); BUN/Creatinine Ratio 16.3; Calcium 7.7 mg/dL (8.5-10.1); Magnesium 1.7 mg/dL (1.6-2.6); Potassium 3.8 mmol/L (3.5-5.1)
[2019-12-29 07:14] LABS: Bilirubin, Total 0.5 mg/dL (0.2-1.0); Total Protein 6.5 g/dL (6.4-8.2)
[2019-12-29] MEDS ORDERED: ZOLPIDEM TARTRATE 5 MG TAB PO PRN (07:30)
[2019-12-29 08:00] VITALS: BP 90/54
[2019-12-29] MEDS: LISINOPRIL 10 MG TAB PO SCH (10:00)
[2019-12-29] MEDS: CARVEDILOL 3.125 MG TAB PO SCH ×2 (10:00→21:29)
[2019-12-29] MEDS ORDERED: CHOLECALCIFEROL (VITD3) 1,000IU=25mCg TAB PO SCH (10:00)
[2019-12-29] MEDS ORDERED: ASCORBIC ACID 1,000 MG TAB PO SCH (10:00)
[2019-12-29] MEDS ORDERED: TIOTROPIUM 18 MCG IN SCH (10:00)
[2019-12-29] MEDS ORDERED: ZINC SULFATE 220mg CAP or TAB PO SCH (10:00)
[2019-12-29] MEDS ORDERED: PATIENTS OWN MEDICATION (Lisinopril 1 TAB) PO SCH (10:00)
[2019-12-29] MEDS: ASPirin-EC 81 mg tab PO SCH (11:20)
[2019-12-29] MEDS: ENOXAPARIN SOD 40 MG/0.4 ML SYRINGE SC SCH (11:22)
[2019-12-29] MEDS: ATORVASTATIN 20 MG TAB PO SCH (11:23)
[2019-12-29] MEDS: DOXYCYCLINE 100 MG TAB/CAP PO SCH ×2 (11:27→21:29)
[2019-12-29] MEDS: MAGNESIUM SULFATE 1GM/100ML 100 ML IV SCH ×2 (13:12→15:00)
[2019-12-29] MEDS: FUROSEMIDE 40 MG/4 ML VIAL IV SCH (13:16)
[2019-12-29 13:30] VITALS: BP 99/65
[2019-12-29] MEDS ORDERED: IOHEXOL 350 MG/ML 100ML IJ ONE (15:18)
[2019-12-29 16:39] VITALS: BP 98/68
[2019-12-29 16:46] VITALS: BP 109/62
[2019-12-29] MEDS ORDERED: OXYC325T14 PO (17:19)
[2019-12-29] MEDS ORDERED: ATOR40TA52 PO (17:21)
[2019-12-29] MEDS ORDERED: HYDR-3682 PO (17:22)
[2019-12-29] MEDS ORDERED: ISOS30TA4 PO (17:23)
[2019-12-29] MEDS ORDERED: ESZOPICLONE PO SCH (18:00)
[2019-12-29] MEDS ORDERED: PATIENTS OWN MEDICATION (Trazodone Hcl 1 TAB) PO SCH (18:00)
[2019-12-29] MEDS: IPRATROPIUM BROM 0.5 MG/2.5ML INH SOL NEB PRN (20:16)
[2019-12-29] MEDS: ACETYLCYSTEINE 10 %(100MG/ML) SOL 4ML NEB PRN (20:16)
[2019-12-29] MEDS: ALBUTEROL SULF 2.5 MG/0.5ML(0.5%) NEB SOLN NEB PRN (20:16)
[2019-12-29 21:30] VITALS: BP 111/74
[2019-12-29] MEDS: traZODone HCL 50 MG TAB PO SCH (21:30)
[2019-12-30] MEDS: IPRATROPIUM BROM 0.5 MG/2.5ML INH SOL NEB PRN (00:40)
[2019-12-30] MEDS: ACETYLCYSTEINE 10 %(100MG/ML) SOL 4ML NEB PRN (00:40)
[2019-12-30] MEDS: ALBUTEROL SULF 2.5 MG/0.5ML(0.5%) NEB SOLN NEB PRN (00:40)
[2019-12-30 05:00] VITALS: BP 121/69
[2019-12-30] MEDS: OXYCODONE W/ ACETAMINOPHEN 5/325MG TABLET PO SCH ×4 (05:04→21:24)
[2019-12-30 06:00] VITALS: BP 139/95
[2019-12-30] MEDS: MORPHINE SULF INJ 2 MG/ML SYRINGE 1ML IV PRN ×4 (06:05→22:44)
[2019-12-30 09:00] VITALS: BP 103/65
[2019-12-30] MEDS: FUROSEMIDE 40 MG/4 ML VIAL IV SCH (09:55)
[2019-12-30] MEDS: DOXYCYCLINE 100 MG TAB/CAP PO SCH ×2 (09:56→21:24)
[2019-12-30] MEDS: ENOXAPARIN SOD 40 MG/0.4 ML SYRINGE SC SCH (09:56)
[2019-12-30] MEDS: ASPirin-EC 81 mg tab PO SCH (09:57)
[2019-12-30] MEDS: ATORVASTATIN 20 MG TAB PO SCH (09:57)
[2019-12-30] MEDS: CARVEDILOL 3.125 MG TAB PO SCH ×2 (09:58→21:23)
[2019-12-30] MEDS: LISINOPRIL 10 MG TAB PO SCH (09:59)
[2019-12-30] MEDS ORDERED: predniSONE 20 MG TAB PO SCH (10:00)
[2019-12-30 11:50] LABS: INR 1.25 (0.9-1.15)
[2019-12-30 13:00] VITALS: BP 108/73
[2019-12-30 17:00] VITALS: BP 110/64
[2019-12-30] MEDS: ONDANSETRON HCL 4 MG/2 ML VIAL IV PRN ×2 (17:54→22:44)
[2019-12-30] MEDS: traZODone HCL 50 MG TAB PO SCH (21:24)
[2019-12-30 22:00] VITALS: BP 127/73
[2019-12-31] MEDS: IPRATROPIUM BROM 0.5 MG/2.5ML INH SOL NEB PRN ×3 (01:02→22:20)
[2019-12-31] MEDS: ALBUTEROL SULF 2.5 MG/0.5ML(0.5%) NEB SOLN NEB PRN ×4 (01:02→22:20)
[2019-12-31 05:00] VITALS: BP 123/70
[2019-12-31] MEDS: OXYCODONE W/ ACETAMINOPHEN 5/325MG TABLET PO SCH ×5 (05:37→22:32)
[2019-12-31 05:53] LABS: Basophils # (auto) 0 10 ^3/uL (0-0.2); Basophils % (auto) 0.4 % (0.0-2.0); Eosinophils # (auto) 0 10 ^3/uL (0-0.8); Eosinophils % (auto) 0.3 % (0.0-7.0); Hematocrit 30.1 % (36.0-46.0); Lymphocytes % (auto) 14.4 % (10.0-50.0); Mean Corpuscular Hemoglobin 27.1 pg (28.0-32.0); Mean Corpuscular Hgb Conc. 33.2 g/dL (32.0-36.0); Mean Corpuscular Volume 81.7 fL (80.0-100.0); Monocytes # (auto) 0.5 10 ^3/uL (0-1.3); Monocytes % (auto) 7.6 % (0.0-12.0); Neutrophils # (auto) 5.5 10 ^3/uL (1.6-8.6); Neutrophils % (auto) 77.3 % (37.0-80.0); Platelet Count (auto) 459 10^3/uL (140-450); Red Blood Cells 3.68 10^6/uL (4.0-5.20); Red Cell Distribution Width 15.3 % (11.8-14.3); White Blood Cell 7.2 10^3/uL (4.4-10.8)
[2019-12-31] MEDS: MORPHINE SULF INJ 2 MG/ML SYRINGE 1ML IV PRN ×3 (05:56→22:43)
[2019-12-31 06:13] LABS: Calcium 8.7 mg/dL (8.5-10.1); Potassium 3.7 mmol/L (3.5-5.1)
[2019-12-31] MEDS: ACETYLCYSTEINE 10 %(100MG/ML) SOL 4ML NEB PRN ×2 (08:37→22:20)
[2019-12-31] MEDS ORDERED: LIDOCAINE 2%HCL (LOCAL ANESTH.) INJ 20ML MDV ONE (08:58)
[2019-12-31] MEDS ORDERED: SODIUM CHLORIDE LOCK 0 ML ONE (08:58)
[2019-12-31] MEDS ORDERED: EPINEPHrine HCL 1 MG/1 ML AMP ONE (08:59)
[2019-12-31] MEDS ORDERED: LIDOCAINE HCL 2% TOP JELLY 5ML TOP ONE (08:59)
[2019-12-31 09:00] VITALS: BP 108/68
[2019-12-31] MEDS ORDERED: fentaNYL CITRATE 100 MCG/2 ML VL ONE (09:00)
[2019-12-31] MEDS ORDERED: diphenhdrAMINE HCL 50 MG/1 ML VL ONE (09:25)
[2019-12-31] MEDS ORDERED: GLYCOPYRROLATE 0.2 MG/ML 1ML VIAL ONE (09:25)
[2019-12-31] MEDS ORDERED: ACETYLCYSTEINE 10 %(100MG/ML) SOL 4ML NEB ONE (09:45)
[2019-12-31] MEDS: methylPREDNISolone SOD SUCC 125 MG/2 ML VL IV SCH ×2 (10:00→16:28)
[2019-12-31] MEDS: LISINOPRIL 10 MG TAB PO SCH (10:00)
[2019-12-31] MEDS: FUROSEMIDE 40 MG/4 ML VIAL IV SCH (10:00)
[2019-12-31] MEDS: ASPirin-EC 81 mg tab PO SCH ×2 (10:00→16:29)
[2019-12-31] MEDS: CARVEDILOL 3.125 MG TAB PO SCH ×2 (10:00→22:30)
[2019-12-31] MEDS: DOXYCYCLINE 100 MG TAB/CAP PO SCH ×2 (10:00→22:32)
[2019-12-31] MEDS: MIDAZOLAM HCL 5 MG/ML-1ML VIAL ONE ×2 (11:03→11:05)
[2019-12-31] MEDS ORDERED: SODIUM CHLORIDE 0.9 % NEB SOLN 3ML NEB ONE (11:13)
[2019-12-31] MEDS ORDERED: DOX100T PO ×2 (13:07)
[2019-12-31] MEDS ORDERED: ALBUAER3 IN ×2 (13:07)
[2019-12-31] MEDS ORDERED: PRED20TA2 PO ×2 (13:07)
[2019-12-31] MEDS ORDERED: FURO1TAB31 PO ×2 (13:07)
[2019-12-31] MEDS: ATORVASTATIN 20 MG TAB PO SCH (16:27)
[2019-12-31 16:54] VITALS: BP 117/79
[2019-12-31 20:27] VITALS: BP 117/79
[2019-12-31 22:00] VITALS: BP 117/79
[2019-12-31] MEDS: traZODone HCL 50 MG TAB PO SCH (22:31)
[2020-01-01] MEDS: methylPREDNISolone SOD SUCC 125 MG/2 ML VL IV SCH ×2 (01:19→10:22)
[2020-01-01] MEDS: MORPHINE SULF INJ 2 MG/ML SYRINGE 1ML IV PRN ×2 (03:04→08:18)
[2020-01-01 04:30] VITALS: BP 136/89
[2020-01-01] MEDS: OXYCODONE W/ ACETAMINOPHEN 5/325MG TABLET PO SCH ×2 (06:13→12:00)
[2020-01-01] MEDS: ALBUTEROL SULF 2.5 MG/0.5ML(0.5%) NEB SOLN NEB PRN (06:23)
[2020-01-01] MEDS: IPRATROPIUM BROM 0.5 MG/2.5ML INH SOL NEB PRN (06:23)
[2020-01-01 06:29] LABS: Basophils # (auto) 0 10 ^3/uL (0-0.2); Eosinophils # (auto) 0 10 ^3/uL (0-0.8); Lymphocytes # (auto) 0.4 10 ^3/uL (0.4-5.4); Mean Corpuscular Hemoglobin 26.7 pg (28.0-32.0); Mean Corpuscular Hgb Conc. 32.6 g/dL (32.0-36.0); Monocytes # (auto) 0.1 10 ^3/uL (0-1.3)
[2020-01-01 06:32] LABS: Hemoglobin 10.4 g/dL (12.2-16.2); Lymphocytes % (auto) 6.5 % (10.0-50.0); Mean Corpuscular Volume 81.8 fL (80.0-100.0); Monocytes % (auto) 1.2 % (0.0-12.0); Neutrophils # (auto) 5.5 10 ^3/uL (1.6-8.6); Neutrophils % (auto) 92.3 % (37.0-80.0); Platelet Count (auto) 541 10^3/uL (140-450); Red Blood Cells 3.91 10^6/uL (4.0-5.20); Red Cell Distribution Width 15.3 % (11.8-14.3)
[2020-01-01 06:45] LABS: Albumin 1.7 g/dL (3.4-5.0); Calcium 8.6 mg/dL (8.5-10.1); Potassium 4.3 mmol/L (3.5-5.1)
[2020-01-01 06:51] LABS: BUN/Creatinine Ratio 25.8; Bilirubin, Total 0.3 mg/dL (0.2-1.0); Total Protein 6.8 g/dL (6.4-8.2)
[2020-01-01 07:32] VITALS: BP 132/82
[2020-01-01 09:00] VITALS: BP 132/82
[2020-01-01] MEDS: ATORVASTATIN 20 MG TAB PO SCH (10:15)
[2020-01-01] MEDS: CARVEDILOL 3.125 MG TAB PO SCH (10:15)
[2020-01-01] MEDS: ASPirin-EC 81 mg tab PO SCH (10:15)
[2020-01-01] MEDS: LISINOPRIL 10 MG TAB PO SCH (10:17)
[2020-01-01] MEDS: DOXYCYCLINE 100 MG TAB/CAP PO SCH (10:17)
[2020-01-01] MEDS: FUROSEMIDE 40 MG/4 ML VIAL IV SCH (10:19)
[2020-01-01 11:25] LABS: Urine Bacteria FEW /hpf (None Seen); Urine Blood Negative /uL (Negative); Urine Specific Gravity 1.016 (1.001-1.035); Urine WBC 1 /hpf (0 - 5)
[2020-01-01 14:32] VITALS: BP 135/81
[2020-01-06] MEDS ORDERED: ALBUAER3 IN (19:02)
[2020-01-06] MEDS ORDERED: FURO1TAB31 PO (19:02)
[2020-01-06] MEDS ORDERED: DOX100T PO (19:02)
[2020-01-06] MEDS ORDERED: PRED20TA2 PO (19:02)
== END 2020-01-01 15:25 | disposition home health service (06) | DRG 291 ==
LOC: ER 17:18 → EDBD 17:18 → TELE 17:19 → TELE-EAST 22:59 → TELE-CENTR 12-29 14:16
PROVIDERS: ADMIT Hospitalist; ATTEND Internal Medicine
PROC: 0B938ZZ Drainage of Right Main Bronchus, Via Natural or Artificial Opening Endoscopic (ICD-10-PCS; 2019-12-31)
PROC: 0B978ZZ Drainage of Left Main Bronchus, Via Natural or Artificial Opening Endoscopic (ICD-10-PCS; principal; 2019-12-31 10:58)
DX: I11.0 Hypertensive heart disease with heart failure (principal); J18.9 Pneumonia, unspecified organism; J96.01 Acute respiratory failure with hypoxia; J44.1 Chronic obstructive pulmonary disease with (acute) exacerbation; J44.0 Chronic obstructive pulmonary disease with (acute) lower respiratory infection; I50.33 Acute on chronic diastolic (congestive) heart failure; Z20.828 Contact with and (suspected) exposure to other viral communicable diseases; R91.8 Other nonspecific abnormal finding of lung field; I25.10 Atherosclerotic heart disease of native coronary artery without angina pectoris; F32.9 Major depressive disorder, single episode, unspecified; E78.5 Hyperlipidemia, unspecified; I25.2 Old myocardial infarction; Z79.51 Long term (current) use of inhaled steroids; Z80.0 Family history of malignant neoplasm of digestive organs; Z83.3 Family history of diabetes mellitus; Z82.5 Family history of asthma and other chronic lower respiratory diseases; Z87.891 Personal history of nicotine dependence; Z95.1 Presence of aortocoronary bypass graft; Z80.3 Family history of malignant neoplasm of breast
CPT/HCPCS: 31622; 36415; 71045; 71275; 80048; 80053; 81001; 82728; 83605; 83615; 83735; 83880; 84484; 85025; 85379; 85610; 86141; 86850; 86900; 86901; 87040; 87070; 87804; 87880; 93005; 93970; 94640; 96361; 96365; 96367; G0378; J0171; J2250; J2405; J2543; J3490

== ENCOUNTER → 2020-03-10 | Outpatient (CLI) | payer OTHER ==
[~2020-03-10] MED LIST changes: +ALBUAER3 IN; -ASP81EC PO; +ASPI-394 PO; -ATOR20TA50 PO; +ATOR40TA52 PO; +DOX100T PO; +FURO1TAB31 PO; +HYDR-3682 PO; +ISOS30TA4 PO; -LEVO500T21 PO; +LIDOCAINE 2%HCL (LOCAL ANESTH.) INJ 20ML MDV ONE; +OXYC325T14 PO; -PERCOT PO; +PRED20TA2 PO
[2020-03-10 09:33] LABS: Basophils # (auto) 0.1 10 ^3/uL (0-0.2); Eosinophils # (auto) 0.5 10 ^3/uL (0-0.8); Lymphocytes # (auto) 1.4 10 ^3/uL (0.4-5.4); Lymphocytes % (auto) 31.6 % (10.0-50.0); White Blood Cell 4.4 10^3/uL (4.4-10.8)
[2020-03-10 09:34] LABS: Basophils % (auto) 1.4 % (0.0-2.0); Eosinophils % (auto) 12.2 % (0.0-7.0); Hematocrit 38.2 % (36.0-46.0); Mean Corpuscular Hemoglobin 26.1 pg (28.0-32.0); Mean Corpuscular Hgb Conc. 31.3 g/dL (32.0-36.0); Mean Corpuscular Volume 83.3 fL (80.0-100.0); Monocytes # (auto) 0.4 10 ^3/uL (0-1.3); Neutrophils % (auto) 44.8 % (37.0-80.0); Platelet Count (auto) 246 10^3/uL (140-450); Red Blood Cells 4.59 10^6/uL (4.0-5.20); Red Cell Distribution Width 18.2 % (11.8-14.3)
[2020-03-10 09:49] LABS: INR 0.99 (0.9-1.15); Partial Thromboplastin Time 25.3 sec (23.0-31.2)
--- NOTE | 2020-03-10 11:00 | NUR ---
PATIENT ARRIVED FOR CT GUIDED LUNG BIOPSY @ 0800 THIS AM. LABS OBTAINED AND RESULTED AT 0920. CONSENT FOR LUNG BIOPSY OBTAINED AFTER RISKS AND BENEFITS EXPLAINED TO PATIENT. CT CHEST OBTAINED. DR PAVON DETERMINED AND ADVISED PATIENT THAT BIOPSY WAS NOT NEED AT THIS TIME AND SHOULD BE REPEATED IN 2 MONTHS. PATIENT VERBALIZED UNDERSTANDING AND AGREED WITH POC. #22 IV REMOVED FROM . 1200 PATIENT ESCORTED TO MAIN LOBBY AFTER MULTIPLE UNSUCCESSFUL ATTEMPTS TO CONTACT HER DAUGHTER. PATIENT STATES SHE WILL CALL HER DAUGHTER IN [place] FOR TRANSPORT HOME. PATIENT CONDITION APPEARS STABLE AT THIS TIME.
== END | disposition home or self-care (01) ==
LOC: CT 08:40
PROVIDERS: ATTEND Internal Medicine
DX: J43.2 Centrilobular emphysema (principal); I11.9 Hypertensive heart disease without heart failure; I25.10 Atherosclerotic heart disease of native coronary artery without angina pectoris; J98.11 Atelectasis; R91.8 Other nonspecific abnormal finding of lung field; F33.9 Major depressive disorder, recurrent, unspecified; D69.2 Other nonthrombocytopenic purpura; I70.0 Atherosclerosis of aorta; R91.1 Solitary pulmonary nodule; M47.814 Spondylosis without myelopathy or radiculopathy, thoracic region; Z79.891 Long term (current) use of opiate analgesic
CPT/HCPCS: 36415; 71250; 85025; 85610; 85730

== ENCOUNTER 2022-04-19 12:48 | Emergency (ER) | payer OTHER ==
[~2022-04-19 12:48] MED LIST changes: +ISOS1TAB28 PO; -ISOS30TA4 PO; -LIDOCAINE 2%HCL (LOCAL ANESTH.) INJ 20ML MDV ONE
[2022-04-19] MEDS ORDERED: methylPREDNISolone SOD SUCC 125 MG/2 ML VL IV ONE (13:00)
[2022-04-19] MEDS ORDERED: cefTRIAXone 1GM/50ML D5W 50 ML IV ONE (13:00)
[2022-04-19 13:43] LABS: Basophils # (auto) 0 10 ^3/uL (0-0.2); Basophils % (auto) 0.2 % (0.0-2.0); Eosinophils # (auto) 0 10 ^3/uL (0-0.8); Monocytes # (auto) 0.8 10 ^3/uL (0-1.3)
[2022-04-19 13:45] LABS: Eosinophils % (auto) 0.2 % (0.0-7.0); Hematocrit 35.6 % (36.0-46.0); Hemoglobin 11.4 g/dL (12.2-16.2); Lymphocytes # (auto) 0.7 10 ^3/uL (0.4-5.4); Lymphocytes % (auto) 4.7 % (10.0-50.0); Mean Corpuscular Hemoglobin 26.9 pg (28.0-32.0); Mean Corpuscular Hgb Conc. 32.2 g/dL (32.0-36.0); Mean Corpuscular Volume 83.6 fL (80.0-100.0); Monocytes % (auto) 5.3 % (0.0-12.0); Neutrophils # (auto) 12.7 10 ^3/uL (1.6-8.6); Neutrophils % (auto) 89.6 % (37.0-80.0); Red Blood Cells 4.26 10^6/uL (4.0-5.20); Red Cell Distribution Width 14.4 % (11.8-14.3); White Blood Cell 14.2 10^3/uL (4.4-10.8)
[2022-04-19 14:14] LABS: Albumin 2.4 g/dL (3.4-5.0); Calcium 8.9 mg/dL (8.5-10.1); Potassium 3.5 mmol/L (3.5-5.1)
[2022-04-19 14:18] LABS: BUN/Creatinine Ratio 21.2; Bilirubin, Total 0.5 mg/dL (0.2-1.0); Total Protein 6.8 g/dL (6.4-8.2)
== END 2022-04-19 20:11 | disposition left against medical advice (07) ==
LOC: ER 12:48 → EDBD 12:48 → ER 20:11
DX: J44.9 Chronic obstructive pulmonary disease, unspecified (principal); J43.9 Emphysema, unspecified; Z53.29 Procedure and treatment not carried out because of patient's decision for other reasons
CPT/HCPCS: 36415; 80053; 83605; 83880; 84484; 85025; 85379; 87040; 93005

== ENCOUNTER 2022-07-20 21:26 | Inpatient (IN) | payer OTHER ==
[~2022-07-20] VITALS: Ht 165.1 cm; Wt 72.2 kg
[2022-07-20 23:17] LABS: Eosinophils # (auto) 0.1 10 ^3/uL (0-0.8); Eosinophils % (auto) 0.3 % (0.0-7.0); Monocytes # (auto) 1.2 10 ^3/uL (0-1.3); Monocytes % (auto) 6.9 % (0.0-12.0); Neutrophils % (auto) 87.6 % (37.0-80.0)
[2022-07-20 23:19] LABS: Basophils # (auto) 0 10 ^3/uL (0-0.2); Basophils % (auto) 0.2 % (0.0-2.0); Hematocrit 31.2 % (36.0-46.0); Hemoglobin 10.3 g/dL (12.2-16.2); Lymphocytes # (auto) 0.9 10 ^3/uL (0.4-5.4); Mean Corpuscular Hemoglobin 27.1 pg (28.0-32.0); Mean Corpuscular Volume 81.9 fL (80.0-100.0); Neutrophils # (auto) 14.9 10 ^3/uL (1.6-8.6); Red Blood Cells 3.82 10^6/uL (4.0-5.20); Red Cell Distribution Width 15.5 % (11.8-14.3)
[2022-07-20 23:34] LABS: Albumin 1.8 g/dL (3.4-5.0); BUN/Creatinine Ratio 20.3; Calcium 8.7 mg/dL (8.5-10.1); Potassium 3.8 mmol/L (3.5-5.1)
[2022-07-20 23:37] LABS: Bilirubin, Total 0.3 mg/dL (0.2-1.0); Total Protein 7.6 g/dL (6.4-8.2)
[2022-07-21] MEDS ORDERED: ACETAMINOPHEN 500 MG TAB PO ONE (00:30)
[2022-07-21] MEDS ORDERED: ALBUTEROL SULF 2.5 MG/0.5ML(0.5%) NEB SOLN NEB ONE (00:30)
[2022-07-21] MEDS ORDERED: levoFLOXacin 500MG 100 ML IV ONE (01:30)
[2022-07-21 02:29] LABS: Urine Bacteria MANY /hpf (None Seen); Urine Blood Negative /uL (Negative); Urine Hyaline Cast FEW /lpf (0 - 2); Urine Mucus FEW (None Seen); Urine Specific Gravity 1.033 (1.001-1.035); Urine WBC 15 /hpf (0 - 5)
[2022-07-21] MEDS ORDERED: ONDANSETRON HCL 4 MG/2 ML VIAL IV ONE ×2 (03:45→10:45)
[2022-07-21] MEDS ORDERED: IPRATROPIUM BROM 0.5 MG/2.5ML INH SOL NEB PRN (11:30)
[2022-07-21] MEDS ORDERED: METOCLOPRAMIDE HCL 5MG/ml INJ 2ml VIAL IV PRN (11:30)
[2022-07-21] MEDS: SODIUM CHLORIDE 0.9% 1,000 ML IV SCH (13:15)
[2022-07-21] MEDS: methylPREDNISolone SOD SUCC 125 MG/2 ML VL IV SCH ×2 (14:00→23:14)
[2022-07-21 15:19] VITALS: BP 143/83
[2022-07-21 15:40] LABS: INR 1.24 (0.9-1.15)
[2022-07-21] MEDS: SUCRALFATE 1 GM/10 ML ORAL SUSP PO SCH ×2 (17:11→23:15)
[2022-07-21] MEDS: ALBUTEROL SULF 2.5 MG/0.5ML(0.5%) NEB SOLN HHN SCH (18:00)
[2022-07-21] MEDS ORDERED: FLUT250M2 INH (22:34)
[2022-07-21] MEDS: PANTOPRAZOLE 40 MG/10 ML VIAL INJ IV SCH (23:15)
[2022-07-21] MEDS: ACETAMINOPHEN 325 MG TAB PO PRN (23:15)
[2022-07-21 23:55] VITALS: BP 133/87
[2022-07-22 00:05] VITALS: BP 133/87
[2022-07-22] MEDS: SODIUM CHLORIDE 0.9% 1,000 ML IV SCH ×2 (02:35→15:39)
[2022-07-22] MEDS: methylPREDNISolone SOD SUCC 125 MG/2 ML VL IV SCH ×3 (05:46→21:16)
[2022-07-22] MEDS: SUCRALFATE 1 GM/10 ML ORAL SUSP PO SCH ×4 (05:46→21:16)
[2022-07-22] MEDS: ALBUTEROL SULF 2.5 MG/0.5ML(0.5%) NEB SOLN HHN SCH ×4 (06:00→19:07)
[2022-07-22 06:45] LABS: Hemoglobin 9.6 g/dL (12.2-16.2); Red Cell Distribution Width 15.4 % (11.8-14.3)
[2022-07-22 06:49] LABS: Hematocrit 29.6 % (36.0-46.0); Mean Corpuscular Hemoglobin 26.8 pg (28.0-32.0); Mean Corpuscular Hgb Conc. 32.3 g/dL (32.0-36.0); Mean Corpuscular Volume 82.8 fL (80.0-100.0); Red Blood Cells 3.58 10^6/uL (4.0-5.20); White Blood Cell 7.6 10^3/uL (4.4-10.8)
[2022-07-22 07:04] LABS: BUN/Creatinine Ratio 27.8; Calcium 8.6 mg/dL (8.5-10.1)
[2022-07-22 07:35] LABS: Basophils % (manual) 0 (0.0-2.0); Blast Cells 0; Eosinophils % (manual) 0 (0-7); Metamyelocytes % 0; Monocytes % (manual) 0 (0-12); Myelocytes % 0; Promyelocytes % 0; Reactive Lymphocytes 0
[2022-07-22 08:00] VITALS: BP 129/102
[2022-07-22] MEDS ORDERED: NITROGLYCERIN 0.4 MG SL TAB SL PRN (08:00)
[2022-07-22] MEDS ORDERED: MORPHINE SULFATE 4 MG/ML SYR/VIAL IV PRN (08:00)
[2022-07-22] MEDS: IPRATROPIUM BROM 0.5 MG/2.5ML INH SOL NEB PRN ×2 (09:15→19:07)
[2022-07-22] MEDS: PANTOPRAZOLE 40 MG/10 ML VIAL INJ IV SCH ×2 (09:32→21:16)
[2022-07-22] MEDS: levoFLOXacin 750MG 150 ML IV SCH (09:32)
[2022-07-22] MEDS: ACETAMINOPHEN 325 MG TAB PO PRN ×2 (09:44→18:40)
[2022-07-22] MEDS ORDERED: methylPREDNISolone SOD SUCC 125 MG/2 ML VL IV SCH (10:00)
[2022-07-22] MEDS ORDERED: PANTOPRAZOLE 40 MG/10 ML VIAL INJ IV SCH (10:00)
[2022-07-22] MEDS ORDERED: POLYETHYLENE GLYCOL 17 GM PWDR PO ONE (10:45)
[2022-07-22 12:00] VITALS: BP 124/78
[2022-07-22 16:00] VITALS: BP 132/74
[2022-07-22 17:18] LABS: Band Neutrophils % (manual) 9; Lymphocytes % (manual) 8 (10.0-50.0)
[2022-07-22 20:29] LABS: INR 1.32 (0.9-1.15)
[2022-07-22] MEDS: CARVEDILOL 3.125 MG TAB PO SCH (21:18)
[2022-07-22 22:00] VITALS: BP_SYST 114; BP_SYST 130; BP_DIAS 38; BP_DIAS 83
[2022-07-23 05:00] VITALS: BP 125/85
[2022-07-23] MEDS: SODIUM CHLORIDE 0.9% 1,000 ML IV SCH ×2 (05:38→18:23)
[2022-07-23] MEDS: SUCRALFATE 1 GM/10 ML ORAL SUSP PO SCH ×3 (06:19→18:23)
[2022-07-23] MEDS: methylPREDNISolone SOD SUCC 125 MG/2 ML VL IV SCH (06:19)
[2022-07-23 08:30] VITALS: BP 132/85
[2022-07-23] MEDS ORDERED: SODIUM CHLORIDE LOCK 10 ML ONE (08:35)
[2022-07-23] MEDS ORDERED: LIDOCAINE VISCOUS 2% 15ML UD ONE (08:35)
[2022-07-23] MEDS ORDERED: diphenhdrAMINE HCL 50 MG/1 ML VL ONE (08:35)
[2022-07-23] MEDS: IPRATROPIUM BROM 0.5 MG/2.5ML INH SOL NEB SCH ×3 (09:45→19:38)
[2022-07-23] MEDS: ALBUTEROL SULF 2.5 MG/0.5ML(0.5%) NEB SOLN HHN SCH ×4 (09:45→19:38)
[2022-07-23] MEDS: PANTOPRAZOLE 40 MG/10 ML VIAL INJ IV SCH (10:00)
[2022-07-23] MEDS ORDERED: methylPREDNISolone SOD SUCC 125 MG/2 ML VL IV SCH (10:00)
[2022-07-23] MEDS: CARVEDILOL 3.125 MG TAB PO SCH (10:00)
[2022-07-23] MEDS: levoFLOXacin 750MG 150 ML IV SCH ×2 (10:00→13:45)
[2022-07-23] MEDS: MIDAZOLAM HCL 5 MG/ML-1ML VIAL ONE ×2 (10:14→10:17)
[2022-07-23] MEDS: fentaNYL CITRATE 100 MCG/2 ML VL ONE ×2 (10:14→10:17)
[2022-07-23 11:05] LABS: Hepatitis B Surface Antibody Negative (Negative)
[2022-07-23 12:30] VITALS: BP 135/87
[2022-07-23 14:28] LABS: Hepatitis C Antibody Negative (Negative)
[2022-07-23 17:00] VITALS: BP 135/72
[2022-07-23] MEDS ORDERED: PRED20TA2 PO (17:13)
[2022-07-23] MEDS ORDERED: LEVO-28 PO (17:13)
[2022-07-23] MEDS ORDERED: PANT40T PO (17:13)
[2022-07-24] MEDS ORDERED: levoFLOXacin 500 MG TAB PO SCH (10:00)
== END 2022-07-23 22:15 | disposition home or self-care (01) | DRG 871 ==
LOC: ER 21:26 → EDBD 21:26 → TELE 07-21 11:30 → TELE-WESTW 07-21 23:50
PROVIDERS: ADMIT Nurse Practitioner Family; ATTEND Internal Medicine
PROC: 0DB68ZX Excision of Stomach, Via Natural or Artificial Opening Endoscopic, Diagnostic (ICD-10-PCS; principal; 2022-07-23 10:00)
DX: A41.9 Sepsis, unspecified organism (principal); E43 Unspecified severe protein-calorie malnutrition; J96.01 Acute respiratory failure with hypoxia; K29.71 Gastritis, unspecified, with bleeding; J18.9 Pneumonia, unspecified organism; D62 Acute posthemorrhagic anemia; J45.901 Unspecified asthma with (acute) exacerbation; N30.00 Acute cystitis without hematuria; J44.0 Chronic obstructive pulmonary disease with (acute) lower respiratory infection; J90 Pleural effusion, not elsewhere classified; D75.839 Thrombocytosis, unspecified; E86.0 Dehydration; I10 Essential (primary) hypertension; I25.10 Atherosclerotic heart disease of native coronary artery without angina pectoris; E78.5 Hyperlipidemia, unspecified; K44.9 Diaphragmatic hernia without obstruction or gangrene; Z20.822 Contact with and (suspected) exposure to COVID-19; Z83.3 Family history of diabetes mellitus; Z80.3 Family history of malignant neoplasm of breast; I25.2 Old myocardial infarction; Z82.5 Family history of asthma and other chronic lower respiratory diseases
CPT/HCPCS: 36415; 36600; 71045; 74176; 80048; 80053; 81001; 82805; 83690; 85007; 85025; 85027; 85610; 85730; 86706; 86803; 86850; 86900; 86901; 87040; 87086; 87426; 87804; 93005; 94640; 96365; 96375; 96376; C9113; G0378; J1956; J2250; J2405